=== PATIENT | male | born 1940 | race Caucasian/White ===

== ENCOUNTER 2022-04-04 14:40 | Inpatient (IN) | payer MEDICARE, MEDICAID ==
[~2022-04-04] VITALS: Ht 152.4 cm; Wt 74.5 kg
[2022-04-04 21:30] VITALS: BP 114/72
[2022-04-04] MEDS ORDERED: RIVA20TA PO (21:48)
[2022-04-04] MEDS ORDERED: PRAV40TA58 PO (21:48)
[2022-04-04] MEDS ORDERED: CARV6.2548 PO (21:48)
[2022-04-04] MEDS ORDERED: PIPERACILLIN/TAZ 3.375G PREMIX 50 ML IV SCH (22:30)
[2022-04-04] MEDS ORDERED: MAGNESIUM/ALUMINUM HYDROXIDE/SIMETHICONE 30ML UDC PO PRN (22:30)
[2022-04-04] MEDS ORDERED: GUAIFENESIN 200MG/10ML SUGAR FREE UDC PO PRN (22:30)
[2022-04-04] MEDS ORDERED: IPRATROPIUM/ALBUTEROL 0.5-3(2.5)MG/3ML NEB HHN PRN (22:30)
[2022-04-04] MEDS ORDERED: LORAZEPAM 2MG/ML CPJ IV PRN (22:30)
[2022-04-04] MEDS ORDERED: MORPHINE SULFATE 2 MG/ML CPJ (NOT FOR IM USE) IV PRN (22:30)
[2022-04-04] MEDS ORDERED: DOCUSATE SODIUM 100MG CAPSULE PO PRN (22:30)
[2022-04-04] MEDS ORDERED: HYDRALAZINE 20MG/ML VIAL IV PRN (22:30)
[2022-04-04] MEDS ORDERED: ONDANSETRON HCL 4MG/2ML INJ IV PRN (22:30)
[2022-04-04] MEDS ORDERED: CLONIDINE 0.1MG TABLET PO PRN (22:30)
[2022-04-05] VITALS (7 sets, daily range): BP systolic 101–118; BP diastolic 57–72
[2022-04-05] MEDS ORDERED: PIPERACILLIN/TAZOBACTAM 3.375G in DEXT 5% WATER 50ML IV NR (00:30)
[2022-04-05 01:06] LABS: HEMATOCRIT 31.3 % (42.0-52.0); HEMOGLOBIN 10.6 g/dL (14.0-18.0); MEAN CORPUSCULAR HEMOGLOBIN 30.8 pg (28.0-32.0); MEAN CORPUSCULAR VOLUME 91.2 fL (80.0-94.0); PLATELET 415 x1000/uL (130-400); RED BLOOD CELL COUNT 3.44 mill/uL (4.7-6.1); RED CELL DISTRIBUTION WIDTH 13.5 % (11.6-14.6)
[2022-04-05 01:19] LABS: CHLORIDE 105 mEq/L (98-107)
[2022-04-05 01:59] LABS: INR 1.3; PROTHROMBIN TIME 13.6 sec (9.6-11.0)
[2022-04-05 03:01] LABS: BASOPHILS % 0.5 % (0.0-2.0); EOSINOPHILS % 4.2 % (0.0-5.0); HEMATOCRIT. 30.9 % (42.0-52.0); HEMOGLOBIN. 10.4 g/dL (14.0-18.0); MEAN CORPUSCULAR HEMOGLOBIN 30.7 pg (28.0-32.0); MEAN CORPUSCULAR VOLUME 91.1 fL (80.0-94.0); MEAN PLATELET VOLUME 6.4 fl (7.4-10.4); MONOCYTES % 12.3 % (2.0-8.0); PLATELET 424 x1000/uL (130-400); RED CELL DISTRIBUTION WIDTH 13.8 % (11.6-14.6)
[2022-04-05 03:10] LABS: CHLORIDE 105 mEq/L (98-107)
[2022-04-05] MEDS: HYDROCODONE/ACETAMINOPHEN 5/325MG TABLET PO PRN ×3 (06:07→18:44)
[2022-04-05] MEDS: PIPERACILLIN/TAZOBACTAM 3.375G in DEXT 5% WATER 50ML IV SCH ×3 (06:08→23:04)
[2022-04-05] MEDS: SODIUM CHLORIDE 0.9% INJ 3ML FLUSH IVF SCH ×3 (06:08→23:05)
[2022-04-05] MEDS ORDERED: PNEUMOCOCCAL 23-VAL P-SAC VAC 0.5 ML IM ONE (06:15)
[2022-04-05] MEDS ORDERED: POTASSIUM CHLORIDE 20MEQ TABLET SR PO NR (18:40)
[2022-04-05] MEDS ORDERED: NALOXONE HCL 0.4MG/ML VIAL IV PRN (18:45)
[2022-04-05] MEDS ORDERED: ENOXAPARIN 40MG/0.4ML SYR SUBCUT SCH (21:00)
[2022-04-05] MEDS: DIGOXIN 500MCG/2ML AMP IV SCH (22:41)
[2022-04-05] MEDS: FUROSEMIDE 40MG/4ML VIAL IVP SCH (22:42)
[2022-04-06] VITALS: BP 113/69
[2022-04-06] MEDS: SODIUM CHLORIDE 0.9% INJ 3ML FLUSH IVF SCH ×3 (05:24→22:51)
[2022-04-06] MEDS: PIPERACILLIN/TAZOBACTAM 3.375G in DEXT 5% WATER 50ML IV SCH ×3 (05:24→22:50)
[2022-04-06 08:00] VITALS: BP 91/57
[2022-04-06] MEDS: FUROSEMIDE 40MG/4ML VIAL IVP SCH (08:28)
[2022-04-06] MEDS: HYDROCODONE/ACETAMINOPHEN 5/325MG TABLET PO PRN (08:35)
[2022-04-06 12:00] VITALS: BP 135/75
[2022-04-06 16:00] VITALS: BP 105/61
[2022-04-06] MEDS: DIGOXIN 500MCG/2ML AMP IV SCH (16:37)
[2022-04-06] MEDS ORDERED: MAGNESIUM 1 G PREMIX 100 ML IV NR (17:30)
[2022-04-06] MEDS ORDERED: ENOXAPARIN 40MG/0.4ML SYR SUBCUT NR (18:00)
[2022-04-06 20:00] VITALS: BP 103/60
[2022-04-06 20:16] LABS: BASOPHILS % 0.7 % (0.0-2.0); EOSINOPHILS % 2.9 % (0.0-5.0); HEMATOCRIT. 35.1 % (42.0-52.0); HEMOGLOBIN. 11.9 g/dL (14.0-18.0); LYMPHOCYTES % 13.9 % (20.0-50.0); MEAN CORPUSCULAR HEMOGLOBIN 30.7 pg (28.0-32.0); MEAN CORPUSCULAR VOLUME 90.4 fL (80.0-94.0); MEAN PLATELET VOLUME 6.9 fl (7.4-10.4); MONOCYTES % 9.4 % (2.0-8.0); NEUTROPHILS % 73.1 % (40.0-76.0); PLATELET 446 x1000/uL (130-400); RED BLOOD CELL COUNT 3.89 mill/uL (4.7-6.1); RED CELL DISTRIBUTION WIDTH 13.7 % (11.6-14.6)
[2022-04-06 20:25] LABS: CHLORIDE 102 mEq/L (98-107)
[2022-04-06 20:32] LABS: T4 FREE 1.22 ng/dL (0.76-1.46)
[2022-04-06] MEDS: DIPHENHYDRAMINE 50MG/ML VIAL IV PRN (22:50)
[2022-04-07] VITALS: BP 101/63
[2022-04-07 04:00] VITALS: BP 128/68
[2022-04-07] MEDS: DIPHENHYDRAMINE 50MG/ML VIAL IV PRN ×2 (04:48→20:39)
[2022-04-07] MEDS: PIPERACILLIN/TAZOBACTAM 3.375G in DEXT 5% WATER 50ML IV SCH ×3 (04:49→22:16)
[2022-04-07] MEDS: SODIUM CHLORIDE 0.9% INJ 3ML FLUSH IVF SCH ×3 (04:56→22:17)
[2022-04-07 08:00] VITALS: BP 102/61
[2022-04-07] MEDS: FUROSEMIDE 40MG/4ML VIAL IVP SCH (08:32)
[2022-04-07 12:00] VITALS: BP_SYST 101; BP_SYST 151; BP_DIAS 53; BP_DIAS 80
[2022-04-07 16:00] VITALS: BP 98/54
[2022-04-07] MEDS ORDERED: ENOXAPARIN 60MG/0.6ML SYR SUBCUT NR (17:15)
[2022-04-07] MEDS: DIGOXIN 500MCG/2ML AMP IV SCH ×2 (17:15→17:30)
[2022-04-07] MEDS: HYDROCODONE/ACETAMINOPHEN 5/325MG TABLET PO PRN (17:41)
[2022-04-07 17:48] LABS: BASOPHILS % 0.5 % (0.0-2.0); EOSINOPHILS % 2.6 % (0.0-5.0); HEMATOCRIT. 36.8 % (42.0-52.0); HEMOGLOBIN. 12.3 g/dL (14.0-18.0); LYMPHOCYTES % 9.9 % (20.0-50.0); MEAN CORPUSCULAR HEMOGLOBIN 30.4 pg (28.0-32.0); MEAN CORPUSCULAR VOLUME 90.6 fL (80.0-94.0); MEAN PLATELET VOLUME 6.8 fl (7.4-10.4); MONOCYTES % 9.6 % (2.0-8.0); NEUTROPHILS % 77.4 % (40.0-76.0); PLATELET 404 x1000/uL (130-400); RED BLOOD CELL COUNT 4.06 mill/uL (4.7-6.1); RED CELL DISTRIBUTION WIDTH 13.9 % (11.6-14.6)
[2022-04-07 17:59] LABS: CHLORIDE 100 mEq/L (98-107)
[2022-04-07] MEDS ORDERED: POTASSIUM CHLORIDE 20MEQ TABLET SR PO NR (19:30)
[2022-04-07 20:00] VITALS: BP 100/54
[2022-04-08] VITALS (7 sets, daily range): BP systolic 96–127; BP diastolic 50–81
[2022-04-08] MEDS: PIPERACILLIN/TAZOBACTAM 3.375G in DEXT 5% WATER 50ML IV SCH ×3 (06:05→22:12)
[2022-04-08] MEDS: SODIUM CHLORIDE 0.9% INJ 3ML FLUSH IVF SCH ×3 (06:05→22:12)
[2022-04-08] MEDS: DIPHENHYDRAMINE 50MG/ML VIAL IV PRN ×3 (06:34→23:58)
[2022-04-08 07:18] LABS: BASOPHILS % 0.4 % (0.0-2.0); EOSINOPHILS % 2.7 % (0.0-5.0); HEMATOCRIT. 36.9 % (42.0-52.0); HEMOGLOBIN. 12.6 g/dL (14.0-18.0); LYMPHOCYTES % 13.6 % (20.0-50.0); MEAN CORPUSCULAR HEMOGLOBIN 30.7 pg (28.0-32.0); MEAN CORPUSCULAR VOLUME 90.1 fL (80.0-94.0); MONOCYTES % 9.2 % (2.0-8.0); NEUTROPHILS % 74.1 % (40.0-76.0); PLATELET 398 x1000/uL (130-400); RED CELL DISTRIBUTION WIDTH 13.6 % (11.6-14.6)
[2022-04-08 07:27] LABS: CHLORIDE 102 mEq/L (98-107)
[2022-04-08 07:59] LABS: DIGOXIN 0.8 ng/mL (0.9-2.0)
[2022-04-08] MEDS: FUROSEMIDE 40MG/4ML VIAL IVP SCH (08:28)
[2022-04-08] MEDS ORDERED: POTASSIUM CHLORIDE 20MEQ TABLET SR PO SCH (12:28)
[2022-04-08 13:25] LABS: BASOPHILS % 0.3 % (0.0-2.0); EOSINOPHILS % 3.1 % (0.0-5.0); HEMATOCRIT. 36.2 % (42.0-52.0); HEMOGLOBIN. 12.5 g/dL (14.0-18.0); MEAN CORPUSCULAR VOLUME 89.4 fL (80.0-94.0); MEAN PLATELET VOLUME 7.2 fl (7.4-10.4); MONOCYTES % 9.3 % (2.0-8.0); NEUTROPHILS % 74.3 % (40.0-76.0); PLATELET 379 x1000/uL (130-400); RED BLOOD CELL COUNT 4.05 mill/uL (4.7-6.1); RED CELL DISTRIBUTION WIDTH 13.6 % (11.6-14.6)
[2022-04-08 13:33] LABS: INR 1.3; PROTHROMBIN TIME 13.5 sec (9.6-11.0)
[2022-04-08 13:37] LABS: CHLORIDE 100 mEq/L (98-107)
[2022-04-08] MEDS ORDERED: ENOXAPARIN 60MG/0.6ML SYR SUBCUT NR (16:15)
[2022-04-08] MEDS: DIGOXIN 500MCG/2ML AMP IV SCH (17:11)
[2022-04-09] VITALS (39 sets, daily range): BP systolic 35–179; BP diastolic 32–88
[2022-04-09] MEDS: SODIUM CHLORIDE 0.9% INJ 3ML FLUSH IVF SCH ×3 (05:52→22:29)
[2022-04-09] MEDS: PIPERACILLIN/TAZOBACTAM 3.375G in DEXT 5% WATER 50ML IV SCH ×3 (05:52→22:59)
[2022-04-09 07:27] LABS: CHLORIDE 103 mEq/L (98-107)
[2022-04-09 07:28] LABS: BASOPHILS % 0.2 % (0.0-2.0); EOSINOPHILS % 3.3 % (0.0-5.0); HEMATOCRIT. 35.7 % (42.0-52.0); HEMOGLOBIN. 12.2 g/dL (14.0-18.0); LYMPHOCYTES % 13.9 % (20.0-50.0); MEAN CORPUSCULAR HEMOGLOBIN 30.5 pg (28.0-32.0); MEAN CORPUSCULAR VOLUME 89.5 fL (80.0-94.0); MEAN PLATELET VOLUME 7.1 fl (7.4-10.4); MONOCYTES % 10.9 % (2.0-8.0); NEUTROPHILS % 71.7 % (40.0-76.0); PLATELET 367 x1000/uL (130-400); RED BLOOD CELL COUNT 3.99 mill/uL (4.7-6.1); RED CELL DISTRIBUTION WIDTH 13.7 % (11.6-14.6)
[2022-04-09] MEDS ORDERED: POLYMYXIN B SULFATE 500000 UNITS/VIAL ONE (07:35)
[2022-04-09] MEDS ORDERED: BUPIVACAINE HCL/PF 0.5% (5MG/ML) 30ML ONE (07:35)
[2022-04-09] MEDS ORDERED: TETRACAINE/BENZOCAINE/BUTAMBEN 20 GM SPRAY MM ONE (07:36)
[2022-04-09] MEDS: FUROSEMIDE 40MG/4ML VIAL IVP SCH (09:00)
[2022-04-09] MEDS ORDERED: TALC 3 GM VIAL IX NR (09:00)
[2022-04-09] MEDS ORDERED: SKIN ADHESIVE 0.7 GM EA TOP ONE (09:24)
[2022-04-09] MEDS ORDERED: PHENYLEPHRINE HCL 1% 15 ML NASAL SPRAY ONE (10:03)
[2022-04-09] MEDS ORDERED: PROPOFOL 200MG/20ML VIAL IV ONE (10:05)
[2022-04-09] MEDS ORDERED: ROCURONIUM BROMIDE 10MG/ML VIAL 5ML IV ONE ×2 (10:11→11:41)
[2022-04-09] MEDS ORDERED: ALBUMIN HUMAN 25GM/100ML (25%) IV ONE (10:54)
[2022-04-09] MEDS ORDERED: DEXAMETHASONE 4MG/ML 1ML VIAL ONE (11:58)
[2022-04-09] MEDS ORDERED: SUCCINYLCHOLINE CHLORIDE 200MG/10ML IV ONE (11:58)
[2022-04-09] MEDS ORDERED: EPHEDRINE SULFATE 50MG/ML VIAL ONE (11:58)
[2022-04-09] MEDS ORDERED: CEFAZOLIN SODIUM 1000MG/VIAL ONE (11:58)
[2022-04-09] MEDS ORDERED: HYDROMORPHONE HCL/PF 2MG/ML CPJ ONE (12:19)
[2022-04-09] MEDS ORDERED: PROPOFOL 10MG/ML 100ML 100 ML IV ONE (12:19)
[2022-04-09] MEDS ORDERED: MORPHINE SULFATE 2 MG/ML CPJ (NOT FOR IM USE) IV PRN (14:00)
[2022-04-09 14:13] LABS: BG BASE EXCESS 0.9 mmol/L (-2.0-2.0); BG CARBOXYHEMOGLOBIN 0.3 % (0.5-1.5); BG DEOXYHEMOGLOBIN 6.4 % (0.0-5.0); BG FRACTION INSPIRED OXYGEN 40; BG HCO3 ACT 24.1 mmol/L (22.0-26.0); BG METHEMOGLOBIN 0.3 % (0.0-1.5); BG OXYGEN SATURATION 93.6 % (92.0-98.5); BG PCO2 33.2 mmHg (35.0-45.0); BG PH 7.478 (7.350-7.450); BG PO2 70.2 mmHg (75.0-100.0); BG SAMPLE SITE ALINE; BG TOTAL HEMOGLOBIN 10.6 g/dL (12.0-18.0); BG VENT MODE VENT - AC
[2022-04-09 14:39] LABS: BASOPHILS % 0.2 % (0.0-2.0); EOSINOPHILS % 1.3 % (0.0-5.0); LYMPHOCYTES % 7.9 % (20.0-50.0); MEAN CORPUSCULAR VOLUME 89.9 fL (80.0-94.0); MEAN PLATELET VOLUME 7.2 fl (7.4-10.4); MONOCYTES % 3.6 % (2.0-8.0); PLATELET 284 x1000/uL (130-400); RED BLOOD CELL COUNT 3.08 mill/uL (4.7-6.1); RED CELL DISTRIBUTION WIDTH 13.8 % (11.6-14.6)
[2022-04-09 14:48] LABS: HEMATOCRIT. 27.7 % (42.0-52.0); HEMOGLOBIN. 9.6 g/dL (14.0-18.0)
[2022-04-09] MEDS: DIGOXIN 500MCG/2ML AMP IV SCH (17:16)
[2022-04-09] MEDS: PROPOFOL 10MG/ML 100ML 100 ML IV PRN (17:18)
[2022-04-09] MEDS: IPRATROPIUM/ALBUTEROL 0.5-3(2.5)MG/3ML NEB HHN SCH (20:37)
[2022-04-09] MEDS: FAMOTIDINE 20MG TABLET PO SCH (21:00)
[2022-04-10] VITALS (75 sets, daily range): BP systolic 88–226; BP diastolic 15–286
[2022-04-10] MEDS: PROPOFOL 10MG/ML 100ML 100 ML IV PRN ×2 (02:57→06:52)
[2022-04-10] MEDS: SODIUM CHLORIDE 0.9% INJ 3ML FLUSH IVF SCH ×3 (05:41→21:21)
[2022-04-10 07:20] LABS: DIGOXIN 1.5 ng/mL (0.9-2.0)
[2022-04-10 08:25] LABS: BG BASE EXCESS 0.9 mmol/L (-2.0-2.0); BG CARBOXYHEMOGLOBIN 0.3 % (0.5-1.5); BG DEOXYHEMOGLOBIN 2.4 % (0.0-5.0); BG FRACTION INSPIRED OXYGEN 40; BG HCO3 ACT 24.2 mmol/L (22.0-26.0); BG OXYGEN SATURATION 97.6 % (92.0-98.5); BG OXYHEMOGLOBIN 97.3 % (94.0-97.0); BG PO2 101.2 mmHg (75.0-100.0); BG SAMPLE SITE ALINE; BG VENT MODE VENT - AC
[2022-04-10] MEDS: FAMOTIDINE 20MG TABLET PO SCH ×2 (08:27→21:21)
[2022-04-10 08:35] LABS: CHLORIDE 106 mEq/L (98-107)
[2022-04-10 08:39] LABS: BASOPHILS % 0.1 % (0.0-2.0); HEMATOCRIT. 28.6 % (42.0-52.0); HEMOGLOBIN. 9.8 g/dL (14.0-18.0); LYMPHOCYTES % 9.4 % (20.0-50.0); MEAN CORPUSCULAR VOLUME 90.6 fL (80.0-94.0); MEAN PLATELET VOLUME 7.6 fl (7.4-10.4); MONOCYTES % 4.8 % (2.0-8.0); NEUTROPHILS % 85.7 % (40.0-76.0); PLATELET 329 x1000/uL (130-400); RED BLOOD CELL COUNT 3.16 mill/uL (4.7-6.1); RED CELL DISTRIBUTION WIDTH 13.9 % (11.6-14.6)
[2022-04-10] MEDS: IPRATROPIUM/ALBUTEROL 0.5-3(2.5)MG/3ML NEB HHN SCH ×3 (08:46→21:41)
[2022-04-10] MEDS: FUROSEMIDE 40MG/4ML VIAL IVP SCH (08:55)
[2022-04-10 10:16] LABS: BG BASE EXCESS -0.1 mmol/L (-2.0-2.0); BG CARBOXYHEMOGLOBIN 0.3 % (0.5-1.5); BG DEOXYHEMOGLOBIN 1.6 % (0.0-5.0); BG FRACTION INSPIRED OXYGEN 40; BG HCO3 ACT 23.1 mmol/L (22.0-26.0); BG METHEMOGLOBIN 0.3 % (0.0-1.5); BG OXYGEN SATURATION 98.4 % (92.0-98.5); BG OXYHEMOGLOBIN 97.8 % (94.0-97.0); BG PCO2 32.5 mmHg (35.0-45.0); BG PH 7.469 (7.350-7.450); BG PO2 119.1 mmHg (75.0-100.0); BG SAMPLE SITE ALINE; BG TOTAL HEMOGLOBIN 11.3 g/dL (12.0-18.0); BG VENT MODE VENT - CPAP
[2022-04-10] MEDS ORDERED: RACEPINEPHRINE 2.25% 0.5ML NEB VIAL HHN PRN (10:45)
[2022-04-10] MEDS: HYDROCODONE/ACETAMINOPHEN 10/325MG TABLET PO PRN (14:50)
[2022-04-10] MEDS: DIPHENHYDRAMINE 50MG/ML VIAL IV PRN ×2 (16:02→21:21)
[2022-04-10] MEDS: DIGOXIN 500MCG/2ML AMP IV SCH (17:34)
[2022-04-10] MEDS ORDERED: LORAZEPAM 2MG/ML CPJ IV PRN (20:30)
[2022-04-11] VITALS (66 sets, daily range): BP systolic 93–133; BP diastolic 50–101
[2022-04-11] MEDS: IPRATROPIUM/ALBUTEROL 0.5-3(2.5)MG/3ML NEB HHN SCH ×4 (01:07→20:56)
[2022-04-11] MEDS: DIPHENHYDRAMINE 50MG/ML VIAL IV PRN ×4 (01:47→22:29)
[2022-04-11 05:21] LABS: BASOPHILS % 0.2 % (0.0-2.0); EOSINOPHILS % 1.4 % (0.0-5.0); HEMATOCRIT. 27.2 % (42.0-52.0); HEMOGLOBIN. 9.2 g/dL (14.0-18.0); LYMPHOCYTES % 15.5 % (20.0-50.0); MEAN CORPUSCULAR HEMOGLOBIN 30.7 pg (28.0-32.0); MEAN CORPUSCULAR VOLUME 90.8 fL (80.0-94.0); MEAN PLATELET VOLUME 7.2 fl (7.4-10.4); NEUTROPHILS % 71.9 % (40.0-76.0); PLATELET 287 x1000/uL (130-400); RED CELL DISTRIBUTION WIDTH 13.9 % (11.6-14.6)
[2022-04-11] MEDS: SODIUM CHLORIDE 0.9% INJ 3ML FLUSH IVF SCH ×3 (05:22→20:44)
[2022-04-11 05:37] LABS: CHLORIDE 106 mEq/L (98-107)
[2022-04-11] MEDS: FAMOTIDINE 20MG TABLET PO SCH ×2 (09:06→20:43)
[2022-04-11] MEDS: FUROSEMIDE 40MG/4ML VIAL IVP SCH (09:06)
[2022-04-11] MEDS: DIGOXIN 500MCG/2ML AMP IV SCH (18:55)
[2022-04-11] MEDS ORDERED: POTASSIUM CHLORIDE 20MEQ TABLET SR PO NR (20:30)
[2022-04-11] MEDS: HYDROCODONE/ACETAMINOPHEN 10/325MG TABLET PO PRN (20:43)
[2022-04-11] MEDS: ENOXAPARIN 80MG/0.8ML SYR SUBCUT SCH (20:44)
[2022-04-12] VITALS (19 sets, daily range): BP systolic 88–164; BP diastolic 52–71
[2022-04-12] MEDS: IPRATROPIUM/ALBUTEROL 0.5-3(2.5)MG/3ML NEB HHN SCH ×4 (01:10→20:49)
[2022-04-12] MEDS: DIPHENHYDRAMINE 50MG/ML VIAL IV PRN ×2 (05:09→21:51)
[2022-04-12] MEDS: SODIUM CHLORIDE 0.9% INJ 3ML FLUSH IVF SCH ×3 (05:10→21:51)
[2022-04-12] MEDS: HYDROCODONE/ACETAMINOPHEN 10/325MG TABLET PO PRN ×2 (05:12→18:22)
[2022-04-12 06:02] LABS: BASOPHILS % 0.4 % (0.0-2.0); EOSINOPHILS % 4.2 % (0.0-5.0); HEMATOCRIT. 32.3 % (42.0-52.0); HEMOGLOBIN. 10.5 g/dL (14.0-18.0); LYMPHOCYTES % 24.8 % (20.0-50.0); MEAN CORPUSCULAR HEMOGLOBIN 29.5 pg (28.0-32.0); MEAN CORPUSCULAR VOLUME 90.5 fL (80.0-94.0); MEAN PLATELET VOLUME 7.1 fl (7.4-10.4); MONOCYTES % 11.1 % (2.0-8.0); NEUTROPHILS % 59.5 % (40.0-76.0); PLATELET 342 x1000/uL (130-400); RED BLOOD CELL COUNT 3.57 mill/uL (4.7-6.1)
[2022-04-12 06:07] LABS: INR 1.2; PROTHROMBIN TIME 13.1 sec (9.6-11.0)
[2022-04-12 06:15] LABS: CHLORIDE 103 mEq/L (98-107)
[2022-04-12] MEDS: ENOXAPARIN 80MG/0.8ML SYR SUBCUT SCH ×2 (08:47→21:51)
[2022-04-12] MEDS: FAMOTIDINE 20MG TABLET PO SCH ×2 (08:47→21:50)
[2022-04-12] MEDS: FUROSEMIDE 40MG/4ML VIAL IVP SCH (08:47)
[2022-04-12] MEDS: DIGOXIN 500MCG/2ML AMP IV SCH (18:20)
[2022-04-13] VITALS (12 sets, daily range): BP systolic 97–119; BP diastolic 49–72
[2022-04-13] MEDS: IPRATROPIUM/ALBUTEROL 0.5-3(2.5)MG/3ML NEB HHN SCH ×4 (00:42→19:40)
[2022-04-13] MEDS: DIPHENHYDRAMINE 50MG/ML VIAL IV PRN ×2 (04:31→20:37)
[2022-04-13] MEDS: SODIUM CHLORIDE 0.9% INJ 3ML FLUSH IVF SCH ×3 (06:14→20:41)
[2022-04-13] MEDS: FUROSEMIDE 40MG/4ML VIAL IVP SCH (09:39)
[2022-04-13] MEDS: ENOXAPARIN 80MG/0.8ML SYR SUBCUT SCH ×2 (09:39→20:37)
[2022-04-13] MEDS: FAMOTIDINE 20MG TABLET PO SCH ×2 (09:39→20:37)
[2022-04-13] MEDS: TAMSULOSIN HCL 0.4MG SR CAPSULE PO SCH (16:32)
[2022-04-13] MEDS: DIGOXIN 500MCG/2ML AMP IV SCH (18:38)
[2022-04-13] MEDS: HYDROCODONE/ACETAMINOPHEN 10/325MG TABLET PO PRN (20:40)
[2022-04-14] VITALS (12 sets, daily range): BP systolic 99–126; BP diastolic 50–67
[2022-04-14] MEDS: IPRATROPIUM/ALBUTEROL 0.5-3(2.5)MG/3ML NEB HHN SCH ×4 (01:48→18:00)
[2022-04-14] MEDS: SODIUM CHLORIDE 0.9% INJ 3ML FLUSH IVF SCH ×3 (05:56→22:05)
[2022-04-14] MEDS: FAMOTIDINE 20MG TABLET PO SCH ×2 (08:04→21:05)
[2022-04-14] MEDS: TAMSULOSIN HCL 0.4MG SR CAPSULE PO SCH (08:04)
[2022-04-14] MEDS: FUROSEMIDE 40MG/4ML VIAL IVP SCH (08:04)
[2022-04-14] MEDS: ENOXAPARIN 80MG/0.8ML SYR SUBCUT SCH ×2 (08:05→21:07)
[2022-04-14 12:21] LABS: CLARITY URINE CLEAR (CLEAR); COLOR URINE YELLOW (YELLOW); KETONES URINE TRACE (NEGATIVE); LEUKOCYTE ESTERASE URINE NEGATIVE (NEGATIVE); NITRITE URINE NEGATIVE (NEGATIVE); OCCULT BLOOD URINE NEGATIVE (NEGATIVE); PH URINE 5.5 (4.5-8.0); PROTEIN URINE TRACE (NEGATIVE); SPECIFIC GRAVITY URINE 1.018 (1.005-1.030)
[2022-04-14 15:49] LABS: BASOPHILS % 0.3 % (0.0-2.0); EOSINOPHILS % 0.7 % (0.0-5.0); HEMATOCRIT. 35.9 % (42.0-52.0); HEMOGLOBIN. 11.9 g/dL (14.0-18.0); LYMPHOCYTES % 9.9 % (20.0-50.0); MEAN CORPUSCULAR HEMOGLOBIN 30.3 pg (28.0-32.0); MEAN CORPUSCULAR VOLUME 91.2 fL (80.0-94.0); MONOCYTES % 6.3 % (2.0-8.0); NEUTROPHILS % 82.8 % (40.0-76.0); PLATELET 367 x1000/uL (130-400); RED BLOOD CELL COUNT 3.94 mill/uL (4.7-6.1); RED CELL DISTRIBUTION WIDTH 13.8 % (11.6-14.6)
[2022-04-14 16:53] LABS: CHLORIDE 100 mEq/L (98-107)
[2022-04-14 17:11] LABS: DIGOXIN 1.9 ng/mL (0.9-2.0)
[2022-04-14] MEDS: DIGOXIN 500MCG/2ML AMP IV SCH (18:18)
[2022-04-14] MEDS: DIPHENHYDRAMINE 50MG/ML VIAL IV PRN (22:04)
[2022-04-15] VITALS (24 sets, daily range): BP systolic 86–138; BP diastolic 40–84
[2022-04-15] MEDS: SODIUM CHLORIDE 0.9% INJ 3ML FLUSH IVF SCH ×3 (05:09→21:53)
[2022-04-15] MEDS: TAMSULOSIN HCL 0.4MG SR CAPSULE PO SCH (08:06)
[2022-04-15] MEDS: FUROSEMIDE 40MG/4ML VIAL IVP SCH (08:07)
[2022-04-15] MEDS: ENOXAPARIN 80MG/0.8ML SYR SUBCUT SCH (08:07)
[2022-04-15] MEDS: FAMOTIDINE 20MG TABLET PO SCH ×2 (08:07→21:52)
[2022-04-15] MEDS: IPRATROPIUM/ALBUTEROL 0.5-3(2.5)MG/3ML NEB HHN SCH ×4 (08:20→21:25)
[2022-04-15] MEDS ORDERED: POTASSIUM CHLORIDE 20MEQ TABLET SR PO NR (12:15)
[2022-04-15] MEDS ORDERED: RIVAROXABAN 20 MG TABLET PO SCH (17:20)
[2022-04-15] MEDS ORDERED: DIGOXIN 125MCG TABLET PO SCH (18:00)
[2022-04-15] MEDS: DIPHENHYDRAMINE 50MG/ML VIAL IV PRN (21:52)
[2022-04-15] MEDS: ACETAMINOPHEN 325MG TABLET PO PRN (21:53)
[2022-04-16] VITALS (13 sets, daily range): BP systolic 106–147; BP diastolic 55–67
[2022-04-16] MEDS: IPRATROPIUM/ALBUTEROL 0.5-3(2.5)MG/3ML NEB HHN SCH ×2 (02:03→08:49)
[2022-04-16] MEDS: ACETAMINOPHEN 325MG TABLET PO PRN (06:55)
[2022-04-16] MEDS: SODIUM CHLORIDE 0.9% INJ 3ML FLUSH IVF SCH (06:55)
[2022-04-16] MEDS: FAMOTIDINE 20MG TABLET PO SCH (08:11)
[2022-04-16] MEDS: TAMSULOSIN HCL 0.4MG SR CAPSULE PO SCH (08:11)
[2022-04-16] MEDS ORDERED: FUROSEMIDE 20MG TABLET PO SCH (09:00)
[2022-04-16] MEDS ORDERED: MIDODRINE HCL 2.5MG TABLET PO NR (10:58)
[2022-04-16] MEDS ORDERED: METOPROLOL SUCCINATE 50MG ER TABLET PO SCH (11:00)
[2022-04-16] MEDS ORDERED: FURO40TA5 PO (13:22)
[2022-04-16] MEDS ORDERED: FAMO20TA8 PO (13:23)
[2022-04-16] MEDS ORDERED: TAMS-11 PO (13:23)
[2022-04-16] MEDS ORDERED: POTA8TAB70 PO (13:24)
[2022-04-16] MEDS ORDERED: METO-396 PO (13:27)
[2022-04-16] MEDS ORDERED: MIDO2.5T PO (13:28)
[2022-04-16] MEDS ORDERED: MIDODRINE HCL 2.5MG TABLET PO SCH (14:00)
== END 2022-04-16 16:27 | disposition home health service (06) | DRG 853 ==
LOC: 7WST 21:10 → CVICU 04-09 13:00 → 3WST 04-12 13:45
PROVIDERS: ADMIT Internal Medicine; ATTEND Internal Medicine
PROC: 5A1935Z Respiratory Ventilation, Less than 24 Consecutive Hours (ICD-10-PCS; principal; 2022-04-09)
PROC: 0BCL4ZZ Extirpation of Matter from Left Lung, Percutaneous Endoscopic Approach (ICD-10-PCS; 2022-04-09)
PROC: 0W9B40Z Drainage of Left Pleural Cavity with Drainage Device, Percutaneous Endoscopic Approach (ICD-10-PCS; 2022-04-09)
PROC: 0BH17EZ Insertion of Endotracheal Airway into Trachea, Via Natural or Artificial Opening (ICD-10-PCS; 2022-04-09)
PROC: 09H Ear, Nose, Sinus, Insertion (ICD-10-PCS; 2022-04-09)
DX: A41.9 Sepsis, unspecified organism (principal); J86.9 Pyothorax without fistula; J96.00 Acute respiratory failure, unspecified whether with hypoxia or hypercapnia; E43 Unspecified severe protein-calorie malnutrition; G93.41 Metabolic encephalopathy; I50.32 Chronic diastolic (congestive) heart failure; I48.92 Unspecified atrial flutter; I13.0 Hypertensive heart and chronic kidney disease with heart failure and stage 1 through stage 4 chronic kidney disease, or unspecified chronic kidney disease; N17.9 Acute kidney failure, unspecified; J90 Pleural effusion, not elsewhere classified; I48.20 Chronic atrial fibrillation, unspecified; D64.9 Anemia, unspecified; N18.9 Chronic kidney disease, unspecified; C61 Malignant neoplasm of prostate; I45.10 Unspecified right bundle-branch block; I27.20 Pulmonary hypertension, unspecified; E78.5 Hyperlipidemia, unspecified; I73.9 Peripheral vascular disease, unspecified; M19.90 Unspecified osteoarthritis, unspecified site; R33.9 Retention of urine, unspecified; Z20.822 Contact with and (suspected) exposure to COVID-19; Z68.32 Body mass index [BMI] 32.0-32.9, adult; Z90.49 Acquired absence of other specified parts of digestive tract; Z86.711 Personal history of pulmonary embolism
CPT/HCPCS: 36415; 36600; 71045; 71250; 80048; 80053; 80162; 81003; 82375; 82805; 82962; 83735; 83880; 84439; 84443; 84478; 84484; 85025; 85027; 86850; 86900; 86920; 87070; 87075; 87102; 87426; 88108; 90732; 93005; 93306; 93923; 93970; 94002; 94003; 94640; 97116; 97161; 97166; 97530; 97535; J0330; J0690; J1100; J1160; J1170; J1200; J1650; J1940; J2060; J2405; J2543; J2704; J3475; J3490; J7060; P9047; A4315